=== PATIENT | male | born 1990 | race Caucasian/White ===

== ENCOUNTER 2016-10-08 16:50 | Emergency (ER) | payer BC ==
[2016-10-08 17:05] VITALS: BP 136/78; PULSE 71; RESP 20; TEMP 97.7; O2SAT 98
--- NOTE | 2016-10-08 17:49 | EDPHY ---
H & P Smoking Status: Never smoked Time Seen by Provider: 10/08/16 16:58 HPI/ROS: CHIEF COMPLAINT: Right shoulder injury HISTORY OF PRESENT ILLNESS: 26-year-old male presents to the emergency department with right shoulder injury. The patient was jumping over a fence and fell and dislocated his right shoulder. He has never dislocated his right shoulder in the past. He has had previous left shoulder dislocations in the past. He has never had surgery. Denies numbness or tingling in his fingers. Denies headache. Denies any other injuries. He is right-hand dominant. REVIEW OF SYSTEMS: Constitutional: No fever, no chills. Eyes: No double or blurry vision. ENT: No sore throat. Respiratory: No cough, no shortness of breath. Cardiac: No chest pain. Gastrointestinal: No abdominal pain, vomiting or diarrhea. Genitourinary: No dysuria. Musculoskeletal: No neck or back pain. Skin: No rashes. Neurological: No headache. (Radha Islas) Past Medical/Surgical History: Previous left shoulder dislocations (Radha Islas) Social History: Single, works as a [employer] (Radha Islas) Physical Exam: General Appearance: Alert, no distress. No visible signs of trauma to his head. He is mentating normally and answering questions appropriately. Eyes: Pupils equal and round. Extraocular motions are all intact. ENT: Mouth: Mucous membranes moist. Respiratory: No wheezing, rhonchi, or rales, lungs are clear to auscultation. Cardiovascular: Regular rate and rhythm. Gastrointestinal: Abdomen is soft and nontender, no masses, no rebound or guarding, bowel sounds normal. Neurological: Alert and oriented x 3, cranial nerves II through XII grossly intact Skin: Warm and dry, no rashes. Musculoskeletal: Nontender to palpate along the cervical, thoracic or lumbar spine. Neck is supple. Extremities: Obvious deformity noted to the right shoulder. He has an anterior shoulder dislocation noted. No other palpable bony tenderness. Full range of motion of the right elbow and right wrist. Normal sensation to light touch with normal 2 point discrimination. Psychiatric: Patient is oriented X 3, there is no agitation. (Radha Islas) Constitutional: Initial Vital Signs Temperature (C) 36.5 C 10/08/16 17:02 Heart Rate 71 10/08/16 17:02 Respiratory Rate 20 10/08/16 17:02 Blood Pressure 136/78 H 10/08/16 17:02 O2 Sat (%) 98 10/08/16 17:02 O2 Delivery Mode Room Air Allergies/Adverse Reactions: No Known Allergies Allergy (Verified 10/08/16 17:02) Home Medications: Medication Instructions Recorded NK [No Known Home Meds] 10/08/16 Medical Decision Making - Diagnostics Imaging: I viewed and interpreted images myself - Diagnostics Imaging Results: Imaging Impressions Shoulder X-Ray 10/08/16 17:21 Impression: Good alignment. No fracture or AC separation. Procedures: After consent was obtained from the patient, the patient was sitting upright and his right hand was placed on my right shoulder. Gentle massage fusion Varghese technique was used and very gentle countertraction was used. The right shoulder was easily relocated. He was placed in a sling and examined post application in good placement with normal BLADE SHARPENER. (Radha Islas) ED Course/Re-evaluation: 26-year-old male presents with right shoulder injury. Obvious right anterior shoulder dislocation noted., see procedure note. Patient was placed in a sling and given orthopedic referral. (Radha Islas) I did not see this patient while he was in the emergency department. However his care was discussed with the PA while the patient was in the department. I agree with treatment plan and management (Conor Mancera) Differential Diagnosis: Including but not limited to fracture, dislocation, contusion, sprain (Radha Islas) Departure - Departure Disposition: Home, Routine, Self-Care Clinical Impression: Dislocation of right shoulder joint Qualifiers: Encounter type: initial encounter Qualified Code(s): S43.004A - Unspecified dislocation of right shoulder joint, initial encounter Condition: Good Instructions: Shoulder Dislocation (ED) Additional Instructions: Sling for comfort and support. Ibuprofen 600mg every 8 hours for pain as directed. Follow up with orthopedic surgeon in 1 week to recheck. Referrals: Collin Simmons MD [Medical Doctor] - 5-7 days, call for appt. (Orthopedic surgeon on-call) Stand Alone Forms: Work Excuse
== END 2016-10-08 18:00 | disposition home or self-care (01) ==
PROC: 0RSJXZZ Reposition Right Shoulder Joint, External Approach (ICD-10-PCS; principal; 2016-10-08)
DX: S43.004A Unspecified dislocation of right shoulder joint, initial encounter (principal); W18.39XA Other fall on same level, initial encounter; Y99.8 Other external cause status; Y93.39 Activity, other involving climbing, rappelling and jumping off
CPT/HCPCS: A4565